=== PATIENT | male | born 1975 | race Caucasian/White ===

== ENCOUNTER 2021-06-18 18:33 | Emergency (ER) | payer OTHER ==
[~2021-06-18] VITALS: Ht 182.9 cm; Wt 82.0 kg
[2021-06-18] MEDS ORDERED: IBUP-2028 MT (19:59)
[2021-06-18 20:20] VITALS: BP 139/69
== END 2021-06-18 20:22 ==
LOC: ER 18:33
DX: M79.671 Pain in right foot (principal); I10 Essential (primary) hypertension
CPT/HCPCS: 29125; 29505; 73610; 73630; 99284